=== PATIENT | female | born 1995 | race Two or more races ===

== ENCOUNTER 2019-04-27 06:57 | Emergency (ER) | payer MEDICAID ==
[~2019-04-27] VITALS: Ht 162.6 cm; Wt 55.8 kg
[2019-04-27] MEDS ORDERED: SILVER SULFADIAZINE 1 % TOPICAL CREAM 50GM TOP ONE ×2 (07:02→07:30)
[2019-04-27] MEDS ORDERED: cefTRIAXone SOD 1,000 MG VL IM ONE (07:30)
[2019-04-27] MEDS ORDERED: HYDROcodone-ACET 7.5/325MG TAB PO ONE (07:30)
[2019-04-27 07:50] VITALS: BP 127/83
== END 2019-04-27 08:11 | disposition home or self-care (01) ==
LOC: ER 06:57
DX: T22.00XA Burn of unspecified degree of shoulder and upper limb, except wrist and hand, unspecified site, initial encounter (principal); F17.210 Nicotine dependence, cigarettes, uncomplicated; F12.10 Cannabis abuse, uncomplicated; F15.10 Other stimulant abuse, uncomplicated; F14.10 Cocaine abuse, uncomplicated; X11.8XXA Contact with other hot tap-water, initial encounter; Y93.89 Activity, other specified; Y92.098 Other place in other non-institutional residence as the place of occurrence of the external cause; Y99.8 Other external cause status
CPT/HCPCS: 16000; 96372; 99284; J0696; 16020

== ENCOUNTER 2021-01-11 20:56 | Emergency (ER) | payer MEDICAID ==
[~2021-01-11] VITALS: Ht 162.6 cm; Wt 86.2 kg
[2021-01-11 23:45] VITALS: BP 121/83
== END 2021-01-12 00:17 | disposition home or self-care (01) ==
LOC: ER 21:00
DX: S66.812A Strain of other specified muscles, fascia and tendons at wrist and hand level, left hand, initial encounter (principal); F17.210 Nicotine dependence, cigarettes, uncomplicated; W07.XXXA Fall from chair, initial encounter; Y93.89 Activity, other specified; Y92.89 Other specified places as the place of occurrence of the external cause; Y99.8 Other external cause status
CPT/HCPCS: 73090; 73110

== ENCOUNTER 2021-03-26 16:10 | Emergency (ER) | payer MEDICAID ==
[~2021-03-26] VITALS: Ht 162.6 cm; Wt 90.7 kg
[2021-03-26 18:47] VITALS: BP 119/56
== END 2021-03-26 19:34 | disposition home or self-care (01) ==
LOC: ER 16:10
DX: S53.401A Unspecified sprain of right elbow, initial encounter (principal); H60.91 Unspecified otitis externa, right ear; F20.9 Schizophrenia, unspecified; F17.210 Nicotine dependence, cigarettes, uncomplicated; W18.39XA Other fall on same level, initial encounter; Y93.89 Activity, other specified; Y92.89 Other specified places as the place of occurrence of the external cause; Y99.8 Other external cause status
CPT/HCPCS: 73080

== ENCOUNTER → 2021-04-16 | Outpatient (CLI) | payer MEDICAID ==
[2021-04-16 13:04] LABS: Basophils # (auto) 0 10 ^3/uL (0-0.2); Basophils % (auto) 0.5 % (0.0-2.0); Eosinophils # (auto) 0.1 10 ^3/uL (0-0.8); Eosinophils % (auto) 1.3 % (0.0-7.0); Hematocrit 39.6 % (36.0-46.0); Hemoglobin 13.2 g/dL (12.2-16.2); Lymphocytes # (auto) 1.6 10 ^3/uL (0.4-5.4); Lymphocytes % (auto) 25.5 % (10.0-50.0); Mean Corpuscular Hemoglobin 28.2 pg (28.0-32.0); Mean Corpuscular Hgb Conc. 33.3 g/dL (32.0-36.0); Mean Corpuscular Volume 84.8 fL (80.0-100.0); Monocytes # (auto) 0.4 10 ^3/uL (0-1.3); Monocytes % (auto) 6.8 % (0.0-12.0); Neutrophils # (auto) 4.2 10 ^3/uL (1.6-8.6); Neutrophils % (auto) 65.9 % (37.0-80.0); Nucleated Red Blood Cells % 0.1 %; Red Blood Cells 4.67 10^6/uL (4.0-5.20); Red Cell Distribution Width 14.1 % (11.8-14.3); White Blood Cell 6.4 10^3/uL (4.4-10.8)
[2021-04-16 13:26] LABS: Albumin 3.7 g/dL (3.4-5.0); Calcium 9.4 mg/dL (8.5-10.1); Potassium 4.1 mmol/L (3.5-5.1)
[2021-04-16 13:30] LABS: BUN/Creatinine Ratio 19.7; Bilirubin, Total 1.1 mg/dL (0.2-1.0); Total Protein 7.8 g/dL (6.4-8.2)
== END | disposition home or self-care (01) ==
LOC: LAB 12:26
PROVIDERS: ATTEND Student in an Organized Health Care Education/Training Program
DX: R73.9 Hyperglycemia, unspecified (principal); Z79.899 Other long term (current) drug therapy
CPT/HCPCS: 36415; 80053; 80061; 83036; 84443; 85025

== ENCOUNTER 2024-12-22 21:13 | Emergency (ER) | payer MEDICAID ==
[~2024-12-22] VITALS: Ht 165.1 cm; Wt 113.5 kg
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
--- NOTE | 2024-12-22 22:01 | DVH ---
Date: 12/22/2024 09:43 PM Examination: XY KUB ABDOMEN SINGLE VIEW History: Rectal foreign body Comparison: None TECHNIQUE: Frontal views of the abdomen was obtained. FINDINGS: Bowel gas pattern is unremarkable. Foreign body noted in the rectum The lung bases are unremarkable. No acute osseous abnormality identified. IMPRESSION: 1. Foreign body noted in the rectum HS:Y
[2024-12-22] MEDS: KETOROLAC TROMETH 60MG/2ML VIAL IM ONE (22:03)
[2024-12-22 23:58] VITALS: TEMP 98.5
[2024-12-23] MEDS: ETOMIDATE (2MG/ML) 20ML VIAL IV ONE ×2 (00:04→00:05)
[2024-12-23 00:25] VITALS: BP 106/71
[2024-12-23 00:56] VITALS: PULSE 100; RESP 14; O2SAT 98
[2024-12-23] MEDS ORDERED: ACET500T58 PO (01:08)
[2024-12-23] MEDS ORDERED: IBUP-1455 PO (01:08)
[2024-12-23] MEDS ORDERED: DOCU-94 PO (01:08)
[2024-12-23] MEDS: DOCUSATE SOD 100 MG CAP PO ONE (01:37)
== END 2024-12-23 02:00 | disposition home or self-care (01) ==
LOC: EDBD 21:13 → ER 21:13
DX: T18.5XXA Foreign body in anus and rectum, initial encounter (principal); F17.210 Nicotine dependence, cigarettes, uncomplicated; W44.8XXA Other foreign body entering into or through a natural orifice, initial encounter; Y93.89 Activity, other specified; Y92.89 Other specified places as the place of occurrence of the external cause; Y99.8 Other external cause status
CPT/HCPCS: 74018; 96372; 99285; J1885